=== PATIENT | female | born 1975 | race Caucasian/White ===

== ENCOUNTER 2022-08-05 08:44 | Outpatient (CLI) | payer BC, SELFPAY ==
[2022-08-05 08:58] LABS: Basophils Absolute Auto 0.06 K/mm3 (0.00-0.10); Basophils Percent Auto 0.7 % (0.0-1.0); Eosinophils Absolute Auto 0.26 K/mm3 (0.02-0.50); Eosinophils Percent Auto 3.1 % (1.0-6.0); Hematocrit 45.1 % (35.0-49.0); Hemoglobin 14.6 g/dL (12.0-15.0); Immature Granulocyte Absolute 0.03 K/mm3 (0.00-0.00); Immature Granulocyte Percent A 0.4 % (0.0-0.0); Lymphocytes Absolute Auto 1.76 K/mm3 (1.10-4.50); Lymphocytes Percent Auto 21.1 % (18.0-42.0); Mean Corpuscular HGB Conc 32.4 g/dL (32.0-36.0); Mean Corpuscular Hemoglobin 29.7 pg (27.0-31.0); Mean Corpuscular Volume 91.9 fL (78.0-102.0); Mean Platelet Volume 9.1 fl (9.2-11.8); Monocytes Absolute Auto 0.58 K/mm3 (0.10-0.90); Monocytes Percent Auto 6.9 % (2.0-11.0); Neutrophils Absolute Auto 5.7 K/mm3 (1.7-7.2); Neutrophils Percent Auto 67.8 % (50.0-70.0); Platelet Count Result 257 K/mm3 (150-420); Red Blood Count 4.91 M/mm3 (4.20-5.40); Red Cell Distribution Width 12.7 % (11.6-14.4); White Blood Count 8.4 K/mm3 (4.8-10.8)
[2022-08-05 09:22] LABS: Appearance Urine Clear (Clear); Bilirubin Urine Negative (Negative); Blood Urine Negative (Negative); Glucose Urine UA Negative (Negative); Ketones Urine Negative (Negative); Leukocyte Esterase Ur Negative (Negative); Nitrate Urine Negative (Negative); Protein Urine Negative (Negative); Specific Grav Ur 1.015 (1.010-1.020); Urobilinogen Urine 0.2 mg/dL (0.2-1.0); pH Urine 6.5 (5.0-8.0)
[2022-08-05 09:26] LABS: Add Urine Microscopic? NO; Color Urine Light Yellow (Yellow)
[2022-08-05 09:54] LABS: Alanine Aminotransferase 49 U/L (14-59); Albumin Level 3.6 g/dL (3.4-5.0); Alkaline Phosphatase 123 U/L (46-116); Anion Gap 9 mmol/L (8-16); Aspartate Amino Transferase 27 U/L (15-37); Bilirubin,Total 0.5 mg/dL (0.00-1.00); Blood Urea Nitrogen 14 mg/dL (7-18); Calcium 8.9 mg/dL (8.5-10.1); Carbon Dioxide 28 mmol/L (21-32); Chloride 107 mmol/L (98-108); Cholesterol 234 mg/dL (0-200); Estimated Glomerular Filt Rate > 60; Glucose 117 mg/dL (70-99); HDL Direct 53 mg/dL (40-60); LDL Cholesterol Calculated 163 mg/dL (<130); Osmolality Calculated 299 mOsm/kg (285-295); Potassium 4.6 mmol/L (3.5-5.1); Sodium 144 mmol/L (136-145); Thyroid Stimulating Hormone 2.59 uIU/mL (0.36-3.74); Total Protein 6.8 g/dL (6.4-8.2); Triglycerides 88 mg/dL (0-150)
[2022-08-10 10:38] LABS: Hemoglobin A1C 5.5 % (<5.7)
== END 2022-08-05 08:45 | disposition home or self-care (01) ==
LOC: CHSLAB 08:46
PROVIDERS: PCP Internal Medicine; Visit Provider Internal Medicine
DX: Z00.00 Encounter for general adult medical examination without abnormal findings (principal); I10 Essential (primary) hypertension; J45.909 Unspecified asthma, uncomplicated; R73.9 Hyperglycemia, unspecified
CPT/HCPCS: 36415; 80053; 80061; 81003; 83036; 84443; 85025

== ENCOUNTER 2022-09-11 10:02 | Outpatient (CLI) | payer BC, SELFPAY ==
--- NOTE | ~2022-09-11 | XR_ITS ---
Lumbosacral Spine: AP and lateral views Clinical History: Pain COMPARISON: 08/28/2014 Findings: The normal lordotic curve is maintained. The vertebral bodies and posterior elements are i ntact. The intervertebral disc spaces are preserved. There are facet joint degenerative changes at L 4-L5 and L5-S1. The sacroiliac joints are normally outlined. IUD noted. Impression: Mild degenerative change, as above. Reviewed, dictated and finalized at location M. LAYER HELPER Impression: Mild degenerative change, as above.
== END 2022-09-11 10:03 | disposition home or self-care (01) ==
LOC: CHSIMG 10:04
PROVIDERS: PCP Internal Medicine; Visit Provider Internal Medicine
DX: M54.50 Low back pain, unspecified (principal)
CPT/HCPCS: 72100

== ENCOUNTER 2022-10-15 13:24 | Outpatient (RCR) | payer OTHER, SELFPAY ==
--- NOTE | 2022-10-15 14:45 | PTOPEVAL1 ---
Assessment and note entered by JT File, PT Evaluation Information Assessment Status Evaluation Diagnosis lumbago R side sciatica Onset 09/15/22 Subjective Information patient reports she is having numbness on the side of the R LE. she reports the numbness does not reach the R knee. she reports the leg feels like it is going to sleep. she reports this has been going on for over a month. she reports the L side has OA in the L hip with bursitis and and impingement as well. she reports she has a torn labrum as well in the L hip. she reports with the R side, she has increased pain with sitting more than standing. however, she reports she also has pain in standing, and depends really on how she moves. she reports twisting and moving will increase her pain. she reports she works for [employer] in the [employer]. 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 she reports she does fluctuate between standing and sitting. Reported Pain Level Pain Score 7: Self Report Assessment PT Clinical Summary mrs. saleh presents to skilled PT services for evaluation and treatment of lower back and R LE pain. she presents with signs and symptoms of R sciatic nerve pain this date. she has a history of lower back and L hip OA, and presents with decreased rom, strength, core stability, and functional activity performance. she would benefit from skilled PT services to improve her objective /functional deficits and progress towards a return to her prior level functional activity performance/quality of life. Plan of Care Interventions Electrical Stimulation,Hot Pack/Cold Pack,Manual Therapy,Neuro Re-education,Patient/Caregiver Educati,Therapeutic Activities,Therapeutic Exercise PT Services Indicated Yes Treatment Frequency and 2x weekly for 8 visits Duration These treatments will address the objective and functional deficits as defined above. The patient will be advanced safely and appropriately in order for the patient to progress towards his/her prior level of function. Additional exercises will be introduced and as well as a comprehensive home exercise program upon discharge, if needed, ?to ensure carryover of functional gains achieved in the clinic. This treatment plan has been reviewed and agreement upon by the patient.
== END 2022-10-15 23:59 | disposition home or self-care (01) ==
LOC: CHSPT 13:24
PROVIDERS: PCP Internal Medicine; Visit Provider Internal Medicine
DX: M54.41 Lumbago with sciatica, right side (principal)
CPT/HCPCS: 97014; 97110; 97161; G0283

== ENCOUNTER 2022-11-29 16:10 | Emergency (ER) | payer OTHER, BC, SELFPAY ==
--- NOTE | ~2022-11-29 | CT_ITS ---
EXAMINATION: CT abdomen pelvis wo con DATE: 11/29/2022 18:14 INDICATION: LLQ abd pain, L flank pain, L low back pain, groin pain TECHNIQUE: Computed tomography (CT) of the abdomen and pelvis was performed without intravenous contr ast. Automated exposure control and iterative reconstruction technique were employed. The dose-length product was 1569.69 mGy-cm. COMPARISON: 10/18/2016. FINDINGS: Lower thorax: Unremarkable Liver: Normal. Biliary/Gallbladder: Gallbladder is absent. No bile duct dilation. Pancreas: No mass or duct dilation. Spleen: Normal. Adrenals:No mass. Kidneys: No mass or obstructing stone. Mild left hydronephrosis. GI tract: No small or large bowel dilation. Normal appendix. Mild diverticulosis without diverticulit is. Mesentery/Peritoneum: No ascites, mass, or free air. Retroperitoneum: No mass. Mild atherosclerotic abdominal aortic and/or arterial calcifications. Pelvis: 4 mm calcification in the most distal aspect of the left UVJ. Bilateral pelvic phleboliths. I UD, in good position.. Soft Tissues: Soft tissues and body wall unremarkable. Status post umbilical hernia repair. Bones: No acute osseous finding. Partial sacralization of L5 on the right. IMPRESSION: 4 mm distal left UVJ stone causing mild obstructive uropathy. Reviewed, dictated and finalized at location K.
[2022-11-29 16:12] VITALS: BP 155/90; PULSE 82; RESP 18; TEMP 36.2; O2SAT 98
--- NOTE | 2022-11-29 16:16 | ED.GENADULT ---
HPI - General Adult General Chief complaint: Back Pain/Injury Stated complaint: urinary issues Time Seen by Provider: 11/29/22 16:13 History of Present Illness HPI narrative: The patient is a 47-year-old with history of asthma, migraine headaches, GERD, obesity. Status post IUD implant, cholecystectomy, laparoscopic right spigelian hernia repair and open umbilical hernia repair. The patient had been doing reasonably well but has had an upper respiratory infection for the last 2 days as manifested by an initial sore throat that has resolved, occasional sweats, congestion, rhinorrhea, and mild nonproductive cough. Today, the patient developed left lower back pain, left flank pain, left lower quadrant abdominal pain radiating to the suprapubic region, [id number] in intensity. She is able to urinate but only very small amounts, with urinary frequency and urgency. No dysuria or hematuria. Nausea present but no vomiting. no history of heavy lifting. No diarrhea or constipation. No hematuria or hematochezia or melena. No chest pain or shortness of breath. Related Data Home Medications Medication Instructions Recorded Confirmed pantoprazole 40 mg tablet,delayed 40 mg PO DAILY 11/29/22 11/29/22 release semaglutide 1 mg/dose (4 mg/3 mL) 1 mg subcut WEEKLY 11/29/22 11/29/22 subcutaneous pen injector (Ozempic) verapamil 180 mg tablet,extended 180 mg PO DAILY 11/29/22 11/29/22 release Allergies Allergy/AdvReac Type Severity Reaction Status Date / Time adhesive tape Allergy Unknown RASH-ITCHIN Verified 11/29/22 16:21 G citric acid Allergy Unknown Unknown Verified 11/29/22 16:21 Review of Systems Review of Systems: All systems reviewed & are unremarkable except as noted in HPI and below Constitutional: Constitutional: Reports as per HPI, Reports no additional constitutional complaints, Denies chills, Denies excessive sweating, Denies fatigue, Denies fever(s), Denies headache(s) and Denies weakness Comments: Appears uncomfortable Eyes: Eyes: Reports as per HPI, Reports no additional eye complaints, Denies change in vision and Denies photophobia ENT: Reports system reviewed and no additional complaints, except as documented, Reports as per HPI, Denies dysphagia, Denies vertigo, Denies dizziness, Denies headache(s), Denies lip swelling, Reports nasal congestion, Reports sore throat ( Days ago, now resolved), Denies throat swelling and Denies tongue swelling Cardiovascular: Cardiovascular: Reports as per HPI, Reports no additional cardiovascular complaints, Denies chest pain, Denies syncope, Denies rapid heart rate and Denies dyspnea Respiratory: Respiratory: Reports as per HPI, Reports no additional respiratory complaints, Denies chest congestion, Reports cough, Denies dyspnea and Denies wheezing Gastrointestinal: Gastrointestinal: Reports as per HPI, Reports no additional gastrointestinal complaints, Reports abdominal pain, Denies constipation, Denies dysphagia, Denies diarrhea, Reports nausea and Denies vomiting Genitourinary: Genitourinary: Reports as per HPI, Denies hematuria, Reports urinary frequency, Reports nocturia, Denies dysuria, Reports pelvic pain, Reports flank pain, Denies urinary incontinence and Reports urinary urgency Musculoskeletal: Musculoskeletal: Reports no additional musculoskeletal complaints, Denies back pain, Denies myalgias, Denies arthralgias, Denies joint swelling and Denies numbness Integumentary/Breasts: Skin/Breast: Reports system reviewed and no additional complaints, except as docu, Denies pruritus, Denies erythema, Denies rash and Denies skin ulcer Neurologic: Reports system reviewed and no additional complaints, except as documented, Reports as per HPI, Denies confusion, Denies vertigo, Denies dizziness, Denies syncope, Denies headache(s), Denies focal weakness, Denies numbness and Denies weakness Psychiatric: Psychiatric: Reports as per HPI, Denies anxiety, Denies confusion, Denies
[2022-11-29] MEDS: ONDANSETRON INJ 4 MG/2 ML VIAL IV PUSH (16:36)
[2022-11-29] MEDS: KETOROLAC 30 MG/ML VIAL (*BKC) IV PUSH (16:37)
[2022-11-29] MEDS: ORPHENADRINE CITRATE 30 MG/ML 2 ML VIAL 60 MG IV PUSH (16:37)
[2022-11-29] MEDS: SODIUM CHLORIDE 0.9% IV 1,000 ML 999 ML IV CONT ×2 (16:38→18:34)
[2022-11-29 17:36] LABS: Basophils Absolute Auto 0.05 K/mm3 (0.00-0.10); Basophils Percent Auto 0.4 % (0.0-1.0); Eosinophils Absolute Auto 0.14 K/mm3 (0.02-0.50); Eosinophils Percent Auto 1.1 % (1.0-6.0); Hematocrit 39.9 % (35.0-49.0); Hemoglobin 13.1 g/dL (12.0-15.0); Immature Granulocyte Percent A 0.8 % (0.0-0.0); Lymphocytes Absolute Auto 1.25 K/mm3 (1.10-4.50); Lymphocytes Percent Auto 9.6 % (18.0-42.0); Mean Corpuscular HGB Conc 32.8 g/dL (32.0-36.0); Mean Corpuscular Volume 91.5 fL (78.0-102.0); Mean Platelet Volume 9.6 fl (9.2-11.8); Monocytes Absolute Auto 0.42 K/mm3 (0.10-0.90); Monocytes Percent Auto 3.2 % (2.0-11.0); Neutrophils Absolute Auto 11.1 K/mm3 (1.7-7.2); Neutrophils Percent Auto 84.9 % (50.0-70.0); Platelet Count Result 242 K/mm3 (150-420); Red Blood Count 4.36 M/mm3 (4.20-5.40); Red Cell Distribution Width 12.5 % (11.6-14.4)
[2022-11-29 17:39] LABS: Appearance Urine Slightly Cloudy (Clear); Bilirubin Urine 1+ (Negative); Blood Urine 3+ (Negative); Glucose Urine UA Negative (Negative); Ketones Urine Trace (Negative); Leukocyte Esterase Ur Negative LEU/UL (Negative); Nitrate Urine Negative (Negative); Protein Urine 1+ (Negative); Specific Grav Ur >= 1.030 (1.010-1.020); Urobilinogen Urine 0.2 mg/dL (0.2-1.0)
[2022-11-29 17:42] LABS: Add Urine Microscopic? YES; Color Urine Dark Yellow (Yellow); Squamous Epithelial Cell Urine Few /hpf (Few); WBC Urine 0-3 /hpf (0-3)
[2022-11-29 17:43] LABS: Bacteria Urine 3+ /hpf
[2022-11-29 17:49] LABS: Alanine Aminotransferase 46 U/L (14-59); Albumin Level 3.4 g/dL (3.4-5.0); Alkaline Phosphatase 123 U/L (46-116); Amylase 38 U/L (25-115); Anion Gap 11 mmol/L (8-16); Aspartate Amino Transferase 23 U/L (15-37); Bilirubin,Total 0.6 mg/dL (0.00-1.00); Blood Urea Nitrogen 12 mg/dL (7-18); Calcium 8.5 mg/dL (8.5-10.1); Carbon Dioxide 26 mmol/L (21-32); Chloride 106 mmol/L (98-108); Estimated CRCL calculation 76 ml/min; Estimated Glomerular Filt Rate 56; Glucose 140 mg/dL (70-99); Lipase 38 U/L (16-77); Osmolality Calculated 297 mOsm/kg (285-295); Potassium 3.7 mmol/L (3.5-5.1); Sodium 143 mmol/L (136-145)
[2022-11-29 17:58] LABS: SPREG INTERNAL CONTROL Positive; Serum Qual hCG Negative
[2022-11-29 18:10] LABS: Influenza A QL RT-PCR Negative (Negative); Influenza B QL RT-PCR Negative (Negative); SARS-CoV-2 RNA PCR Negative (Negative)
[2022-11-29 18:12] LABS: RSV RNA, RT-PCR Negative (Negative); Strep Group A RT-PCR NOT DETECTED (Negative)
[2022-11-29 19:07] VITALS: BP 154/88; PULSE 82; RESP 18; TEMP 36.2; O2SAT 98
[2022-11-29 19:21] VITALS: BP 122/82; PULSE 69; RESP 20; TEMP 36.7; O2SAT 99
== END 2022-11-29 19:23 | disposition home or self-care (01) ==
PROVIDERS: Emergency Provider Emergency Medicine; PCP Internal Medicine
DX: N13.2 Hydronephrosis with renal and ureteral calculous obstruction (principal); Z20.822 Contact with and (suspected) exposure to COVID-19
CPT/HCPCS: 36415; 74176; 80053; 81001; 82150; 83690; 84703; 85025; 87637; 87651; 96361; 96374; 96375; 99284; J1885; J2360; J2405; J7030

== ENCOUNTER 2024-03-28 16:50 | Emergency (ER) | payer OTHER, SELFPAY ==
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
[2024-03-28 16:51] VITALS: BP 160/120; PULSE 126; RESP 20; TEMP 36.1; O2SAT 95
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
[2024-03-28] MEDS: KETOROLAC (*BKC) 60 MG/2 ML VIAL IM (17:16)
[2024-03-28 18:55] VITALS: BP 176/106; PULSE 82; RESP 18; TEMP 36.6; O2SAT 99
== END 2024-03-28 18:55 | disposition home or self-care (01) ==
PROVIDERS: Emergency Provider Family Medicine; PCP Internal Medicine
DX: S99.912A Unspecified injury of left ankle, initial encounter (principal); S79.912A Unspecified injury of left hip, initial encounter; S99.922A Unspecified injury of left foot, initial encounter; V03.90XA Pedestrian on foot injured in collision with car, pick-up truck or van, unspecified whether traffic or nontraffic accident, initial encounter
CPT/HCPCS: 72100; 73502; 73590; 73610; 73630; 96372; 99284; J1885